=== PATIENT | female | born 1980 | race Caucasian/White ===

== ENCOUNTER 2017-08-26 05:33 | Inpatient (IN) | payer OTHER ==
[~2017-08-26] VITALS: Ht 170.2 cm; Wt 74.4 kg
[2017-08-26] MEDS ORDERED: LACTATED RINGERS 1,000 ML IV SCH (05:45)
[2017-08-26 06:54] LABS: UCG SCREEN NEGATIVE
[2017-08-26] MEDS ORDERED: BACITRACIN 50,000 UNITS/VIAL ONE (07:21)
[2017-08-26] MEDS ORDERED: BUPIVACAINE HCL/PF 0.25% (2.5MG/ML) 10ML ONE (07:21)
[2017-08-26] MEDS ORDERED: NORMAL SALINE 0.9% 10 ML SYR ONE (07:21)
[2017-08-26] MEDS ORDERED: LIDOCAINE HCL/PF 1% 10 MG/ML 5ML VIAL ONE (07:25)
[2017-08-26] MEDS ORDERED: METOCLOPRAMIDE HCL 10MG/2ML VIAL ONE (07:25)
[2017-08-26] MEDS ORDERED: MIDAZOLAM HCL 2 MG/2 ML VIAL ONE (07:25)
[2017-08-26] MEDS ORDERED: FENTANYL CITRATE/PF 50MCG/ML 2ML VIAL ONE ×2 (07:25→09:21)
[2017-08-26] MEDS ORDERED: ONDANSETRON HCL 4MG/2ML VIAL ONE (07:25)
[2017-08-26] MEDS ORDERED: SUCCINYLCHOLINE CHLORIDE 200MG/10ML VIAL IV ONE (07:25)
[2017-08-26] MEDS ORDERED: PROPOFOL 200MG/20ML VIAL IV ONE (07:25)
[2017-08-26] MEDS ORDERED: CEFAZOLIN SODIUM 1000MG/VIAL ONE (07:25)
[2017-08-26] MEDS ORDERED: ROPIVACAINE HCL 10MG/ML 20 ML VIAL EPI ONE (07:30)
[2017-08-26] MEDS ORDERED: GLYCOPYRROLATE 0.2 MG/ML 2ML VIAL ONE (07:39)
[2017-08-26] MEDS ORDERED: PHENYLEPHRINE HCL 10 MG/ML 1ML (IV VIAL) IV ONE (08:46)
[2017-08-26] MEDS ORDERED: SKIN ADHESIVE 0.7 GM EA TOP ONE (09:25)
[2017-08-26] MEDS ORDERED: MORPHINE SULFATE 2 MG/ML CPJ (NOT FOR IM USE) IV PRN (09:30)
[2017-08-26] MEDS ORDERED: ONDANSETRON HCL 4MG/2ML VIAL IV PRN ×2 (09:30→10:15)
[2017-08-26] MEDS ORDERED: MEPERIDINE HCL/PF 25MG/ML CPJ IV PRN ×2 (09:30)
[2017-08-26] MEDS ORDERED: SODIUM CHLORIDE 0.9% 1,000 ML IV ONE (09:30)
[2017-08-26] MEDS ORDERED: HYDROMORPHONE HCL/PF 2MG/ML CPJ IV PRN (09:30)
[2017-08-26] MEDS ORDERED: MORPHINE SULFATE 4 MG/ML CPJ (NOT FOR IM USE) IV PRN ×3 (10:15→12:15)
[2017-08-26] MEDS ORDERED: ACETAMINOPHEN 325MG TABLET PO PRN (10:15)
[2017-08-26 12:20] VITALS: BP 116/60
[2017-08-26 12:41] VITALS: BP 116/60
[2017-08-26] MEDS: CEFAZOLIN 2,000 MG in DEXT 5% WATER 100 ML IV SCH ×2 (15:21→21:08)
[2017-08-26] MEDS: HYDROCODONE/ACETAMINOPHEN 5/325MG TABLET PO PRN ×2 (15:32→20:24)
[2017-08-26] MEDS ORDERED: LEVO200T8 MT (15:44)
[2017-08-26 16:00] VITALS: BP 110/60
[2017-08-26 20:00] VITALS: BP 125/84
[2017-08-26] MEDS ORDERED: KETOROLAC 30MG/ML VIAL IV NR (20:15)
[2017-08-26] MEDS ORDERED: ASPIRIN 325MG EC TABLET PO SCH (21:00)
[2017-08-26] MEDS ORDERED: ZOLPIDEM TARTRATE 5MG TABLET PO PRN (21:00)
[2017-08-27] VITALS: BP 99/55
[2017-08-27] MEDS: HYDROCODONE/ACETAMINOPHEN 5/325MG TABLET PO PRN ×2 (00:37→05:05)
[2017-08-27 04:00] VITALS: BP 99/55
[2017-08-27 08:00] VITALS: BP 106/59
[2017-08-27 10:32] VITALS: BP 106/59
== END 2017-08-27 12:10 | disposition home or self-care (01) | DRG 494 ==
LOC: OR 05:33 → 6EST 05:34
PROVIDERS: ADMIT Internal Medicine; ATTEND Internal Medicine
PROC: 0QSJ04Z Reposition Right Fibula with Internal Fixation Device, Open Approach (ICD-10-PCS; principal; 2017-08-26 07:30)
DX: S82.61XA Displaced fracture of lateral malleolus of right fibula, initial encounter for closed fracture (principal); S83.411A Sprain of medial collateral ligament of right knee, initial encounter; W19.XXXA Unspecified fall, initial encounter; Y93.89 Activity, other specified; Y92.89 Other specified places as the place of occurrence of the external cause; Y99.8 Other external cause status; Z90.49 Acquired absence of other specified parts of digestive tract
CPT/HCPCS: 36415; 73610; 81025; 86850; 86900; 97116; 97163; A4216; J0330; J0690; J1885; J2175; J2250; J2270; J2370; J2405; J2704; J2765; J2795; J3010; J3490; J7040; J7060; J7120